=== PATIENT | male | born 1950 | race African-American/Black ===

== ENCOUNTER 2024-12-12 19:01 | Emergency (ER) | payer MEDICARE, MEDICAID ==
[~2024-12-12] VITALS: Ht 175.3 cm; Wt 90.0 kg
[~2024-12-12 19:01] MED LIST: AMLO5TAB88 MT; ATOR20TA65 MT; BENZ100C86 MT; DIVA-73 MT; FURO40TA5 MT; GABA-529 MT; LISI10TA26 MT; METF-414 MT; MIDO5TAB4 MT; MIRT-89 MT; NALT50TA5 MT; QUET200T30 MT
[2024-12-12 19:03] VITALS: O2SAT 98
[2024-12-12 20:38] VITALS: BP 130/68; PULSE 92; RESP 18; TEMP 36.8; O2SAT 97
== END 2024-12-12 20:42 | disposition home or self-care (01) ==
LOC: ER 19:01
DX: Z00.00 Encounter for general adult medical examination without abnormal findings (principal); R56.9 Unspecified convulsions; F14.90 Cocaine use, unspecified, uncomplicated; F12.90 Cannabis use, unspecified, uncomplicated; F31.9 Bipolar disorder, unspecified; Z79.899 Other long term (current) drug therapy; Z79.84 Long term (current) use of oral hypoglycemic drugs; Z88.8 Allergy status to other drugs, medicaments and biological substances
CPT/HCPCS: 99283; A4606